=== PATIENT | male | born 1960 | race Caucasian/White ===

== ENCOUNTER 2020-12-22 05:29 | Inpatient (IN) ==
--- NOTE | 2020-12-06 10:11 | Anesthesiology Consultation ---
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 Patient follows strict COVID precaution guidelines. Patient not vaccinated. No known COVID-19 positive contacts or current COVID-19 related symptoms. Surgeon arranging preop COVID testing. Awaiting results. At anesthesiologist discretion AM DOS if increased PPE or updated COVID testing needed given work travel hx. - S/P colonoscopy (02/02/20): [facility] at [facility] Chart Review Chart Review: Acceptable Risk for Surgery and Patient seen in Pre Admission Testing Teaching & Discussion Pre-Anesthesia Teaching/Discussion Notes: Instructed NPO after midnight before surgery,except medications with 15 cc of water. Medication instructions provided according to the PAT guidelines. History Surgery Operation Date: 12/22/20 10:50 Proposed Procedures p Robotic Assisted Laparoscopic Prostatectomy, Retropublic Prostatectomy, Possible Open, Possible Pelvic Lymph Node Disection, Possible Suprabic Tube Placement - Lennox Weldon, DO Height/Weight Height: 5 ft 6 in Weight: 95.6 kg Allergies Allergy/AdvReac Type Severity Reaction Status Date / Time No Known Allergies Allergy Verified 12/01/20 13:21 Medications Home Medications Medication Instructions Recorded Confirmed Last Taken No Known Home Medications 12/01/20 12/01/20 Unknown Past Medical History Medical History Cerumen impaction recurrent hx (typically annual removal) Chronic prostatitis Elevated PSA Neck pain Chronic Obesity Osteoarthritis Prostate cancer Somatic dysfunction Cervical, lumbar, pelvis, rib, sacral, thoracic regions Exercise / Class Metabolic Activity II 4-5 Yardwork/Stairs/Walk up hill (one FS (no CP, no SOB)) Past Family History Family History Other Breast cancer Prostate cancer Past Surgical History Surgical History H/O oral surgery 1980s H/O prostate biopsy Hx of colonoscopy Past Anesthesia History No Hx of Anesthesia Complications and No Family Hx of Anesthesia Complications History of PONV No Hx of PONV and No Hx of Motion Sickness Social History Smoking Status: Current every day smoker tobacco type: cigars Smoking cigarettes per day: 1/2 PPD (tobacco use x 5 years)- Attempting to quit per patient Do You Dip or Chew Tobacco: Yes (1 can/2 days- Advised none DOS- Attempting to quit per patient ) Hx Alcohol Use: Yes Alcohol type: beer alcohol intake frequency: 3 or more drinks per day (2-3 beers/day (evening)) Hx Substance Use: No substance use type: does not use Review of Systems Patient denies chest pain, shortness of breath, dyspnea on exertion, fever, chills, cough, wheezing, palpitations. Physical Exam Vital Signs VITALS BP 132/88 P 76 TEMP 98.4 SP02 96%RA RESP 18 PHYSICAL Full cervical extension range of motion. Full TMJ range of motion. TMD 4 finger breaths Mallampati Score 3 Dentition: upper front tooth repair Lungs: clear throughout to auscultation Cardiac: regular rate and rhythm, no murmurs noted Spine: normal Carotid arteries: negative bruit Extremities: no edema Trimmed sena Lab Results Anesthesia Preop Results Results Anesthesia Widget: WBC 13.87 K/uL (4.8-10.8) H 12/06/20 Hgb 16.1 g/dL (14.0-18.0) 12/06/20 Hct 46.6 % (42-52) 12/06/20 Plt 250 K/uL (130-400) 12/06/20 Na 140 mmol/L (136-145) 12/06/20 K 4.3 mmol/L (3.5-5.1) 12/06/20 Cl 110 mmol/L (98-107) H 12/06/20 CO2 27 mmol/L (21-32) 12/06/20 BUN 14 mg/dl (7-18) 12/06/20 Creat 0.79 mg/dl (0.6-1.4) 12/06/20 Glucose Level 107 mg/dl (70-99) H 12/06/20 Blood Type A Positive 12/06/20 Antibody Screen NEGATIVE 12/06/20 Lab Comments: Surgeon's office made aware of elevated WBC. Testing Laboratory Results 11/16/20 UA negative (no growth on culture) Electrocardiogram Date: 12/06/20 NSR at 64bpm. unconfirmed report. Chest X-Ray Date: 12/06/20 Findings: + NAD
[2020-12-22] MEDS ORDERED: ceFAZolin 2000MG 2,000 MG/15 ML SYR IV SCH (06:00)
[2020-12-22] MEDS ORDERED: HEPARIN SOD 5,000 UNIT/0.5 ML VIAL SC SCH (06:00)
[2020-12-22] MEDS ORDERED: LR 15ML/HR IV SCH (06:00)
[2020-12-22] MEDS ORDERED: ACETAMINOPHEN 1000 MG/100 ML IV IV ONE (06:36)
[2020-12-22] MEDS ORDERED: LIDOCAINE 2% 2 ML VIAL/AMP(20MG/ML) INFIL ONE (06:39)
[2020-12-22] MEDS ORDERED: ROCURONIUM BROMIDE 10 MG/ML 5 ML VIAL IV ONE ×6 (06:39→09:35)
[2020-12-22] MEDS ORDERED: fentaNYL citrate 100 MCG/2 ML VIAL ONE ×4 (06:39→10:43)
[2020-12-22] MEDS ORDERED: MIDAZOLAM HCL 1 MG/ML 2ML VIAL ONE (06:39)
[2020-12-22] MEDS ORDERED: PROPOFOL IV EMULSION 10 MG/ML 20 ML VIAL IV ONE (06:39)
[2020-12-22] MEDS ORDERED: LARYING-O-JET KIT (LTA) ONE (06:39)
[2020-12-22] MEDS ORDERED: ONDANSETRON INJ 2 MG/ML 2 ML VIAL ONE ×2 (06:39→10:41)
[2020-12-22] MEDS ORDERED: ATROPINE SULFATE 0.1 MG/ML 10ML SYR IV PRN (06:47)
[2020-12-22] MEDS ORDERED: ePHEDrine sulfate 50 MG/ML AMP IV PRN (06:47)
[2020-12-22] MEDS ORDERED: ONDANSETRON INJ 2 MG/ML 2 ML VIAL IV PRN ×2 (06:47→13:00)
--- NOTE | 2020-12-22 06:56 | History & Physical Report ---
Date of Service December 22, 2020 Assessment & Plan (1) Prostate cancer: Plan: Risks and benefits discussed at length for procedure. These include bleeding, infection, injury to surrounding tissues or organs, and risks associated with anesthesia. Patient states understanding and agrees to proceed. Will sign consent and proceed. See last office note for full discussion. Plan for Robot Asst. Laparoscopic prostatectomy with bilateral lymph node dissection. History of Present Illness Primary Care Provider: Umang Richards DO Patient here for procedure. No changes in medical issues. No major changes in urinary issues. Continued issues and concerns. No change in pain or discomfort. No severe fevers or chills. No chest pain or shortness of breath. Risks and benefits discussed at length for procedure. These include bleeding, infection, injury to surrounding tissues or organs, and risks associated with anesthesia. Patient and/or family states understanding and agrees to proceed. Consent and supporting information completed. Allergies Allergy/AdvReac Type Severity Reaction Status Date / Time No Known Allergies Allergy Verified 12/22/20 06:19 Home Medications Medication Instructions Recorded Confirmed Type No Known Home Medications 12/01/20 12/01/20 History Past Med/Surg History Medical History Cerumen impaction recurrent hx (typically annual removal) Chronic prostatitis Elevated PSA Neck pain Chronic Obesity Osteoarthritis Prostate cancer Somatic dysfunction Cervical, lumbar, pelvis, rib, sacral, thoracic regions Surgical History H/O oral surgery 1980s H/O prostate biopsy Hx of colonoscopy Family History Other Breast cancer Prostate cancer Social History Smoking Status: Current every day smoker Tobacco Type: Cigarettes and Cigars Cigarettes Per Day: 1/2 PPD (tobacco use x 5 years)- Attempting to quit per patient; Second Hand Exposure: No; Do You Dip or Chew Tobacco: Yes (1 can/2 days- Advised none DOS- Attempting to quit per patient ); Tobacco Cessation Education Requested by Patient: No Hx Alcohol Use: Yes Alcohol type: beer Hx Substance Use: No Preferred Language: Hungarian Communication Ability: Effective Hearing Ability: Hard of Hearing Teaching Artist Required: No Beliefs That Will Affect Care: None Current Living Situation: Spouse current occupational status: employed Other Information That Helps Us Care for You: No Feels Safe at Home: Yes Safety Concerns: Feels Safe At This Time caffeine: Yes Dental Care, Regularly: No Physical Activity Frequency: Does not Exercise Assistive Devices: Glasses Review of Systems All systems reviewed & are unremarkable except as noted in HPI & below Physical Exam Physical Exam: General: Alert/Arousable. No Acute illness. . HEENT: Inspection normal. Normal inspection of face. Normal inspection of neck. Psychologic: Normal affect/No change in mentation. Respiratory: No use of accessory muscles. No respiratory changes or exacerbation or changes with tachypnea or dyspnea. Cardiovascular: No tachycardia Skin: [place] and Dry. No new rashes or visible lesions. Abdomen: Normal inspection. No guarding. PG Care Time/CCT Total # of Minutes Spent Total Time Spent with Patient: Total time spent is greater than 50% in coordination of care (as documented) at patient's floor/unit and/or counseling patient: Coding Level of Care Code None Diagnoses Prostate cancer C61
[2020-12-22] MEDS ORDERED: BUPIVACAINE 0.5 % 5 MG/1 ML MPF 30ML VIAL ONE (07:25)
[2020-12-22] MEDS ORDERED: FLOSEAL HEMOSTATIC MATRIX 10ML TOP ONE (08:39)
[2020-12-22] MEDS ORDERED: ePHEDrine sulfate 50 MG/ML SYR ONE (09:02)
[2020-12-22] MEDS ORDERED: GLYCOPYRROLATE 0.2 MG/ML VIAL ONE (10:41)
[2020-12-22] MEDS ORDERED: NEOSTIGMINE METHYLSULFATE 1 MG/ML 10ML VIAL ONE (10:41)
--- NOTE | 2020-12-22 11:12 | Operative Report ---
PG Post Operative Report Pre & Post Diagnosis Operation Date: 12/22/20 07:30 Pre-Op Diagnosis: Prostate Cancer Post-Op Diagnosis: Prostate Cancer I identified the patient and participated in the time-out.: Yes Procedure Operation Date: 12/22/20 07:30 Actual Procedures p Laparoscopic Robotic Assisted Radical Retropublic Prostatectomy, Pelvic Lymph Node Disection(Not Applicable) - Lennox Weldon DO Surgeon Lennox Weldon, II, DO Land Commissioner Fady CRAIG Estimated Blood Loss 100 Findings Consistent with Post-Op Diagnosis Small prostate with moderate adherence at the right base/pedicle Specimens Prostate and Seminal Vesicle Left Pelvic Lymph Nodes Right Pelvic Lymph Nodes. Drains 18 Fr Mcmahon catheter. 10 Fr Flat drain Anesthesia Type General Complications none Disposition Disposition: Recovery Room Indications Patient with Prostate Cancer. Risk and benefits were discussed at length. Patient elected to undergo robotic assisted laparoscopic Radical Prostatectomy. Description of Procedure The patient was brought to the operative suite and placed under general endotracheal intubation anesthesia in the supine position. The patient was transferred to the dorsal lithotomy position. At this point, the patient prepped and draped in the usual sterile fashion and a timeout was completed. Pre operative antibiotics of Ancef 2 grams had been given. FERNANDA's and SCD's were placed on the patient's lower extremities. A catheter was placed using sterile technique. With the time out completed the patient was placed into Trendelenburg and the skin at the umbilicus was anesthetized. A small incision was made superior to the umbilicus. A Varess Needle was placed and confirmed to be in the abdominal cavity. Water drop test passed. The Abdominal cavity was insufflated to 15 mmHG. The camera port was then placed. A laparoscopic camera was placed into the port and the abdominal cavity inspected. No concerning features were noted. At this point, the skin was marked for port placement and 8mm working ports were placed. The skin was anesthetized down to fascia and an approx 1cm incision was made to place the 3 x 8mm ports. A 12mm and 5 mm orthodontic assistant ports were also placed in similar fashion under direct visualization. The patient was transferred into steep Trendelenburg position and the legs lowered. The robot was positioned and docked. The camera was placed and all trocars were positioned under direct visualization. Fady CRAIG was integral in port placement, camera utilization, and docking procedure. She remained in sterile attire and then proceeded to assist the remainder of the case. At this point, I transitioned to the robotic console. At this point, the sigmoid colon was mobilized superiorly and the pelvis assessed. Adhesions were freed to allow mobilization. The peritoneum in the midline was opened between rectum and bladder and the vas deferens and seminal vesicles exposed. These were dissected with blunt technique. The vas was clipped and cut and mobilized. Cautery was used to assist dissection avoiding the tissue posteriorly near the rectum. The tissues lateral to the seminal vesicles were clipped with a hemolock and all bleeding controlled. This was taken as inferior as possible from this position. The medial umbilical ligaments were then identified and the peritoneum directly lateral on the right followed by the left was opened. The tissues were bluntly dissected to free the bladder's lateral attachments. This was taken down to the pubic bone and exposed the endopelvic fascia bilaterally. The medial ligaments were cut and the bladder dropped. The tissues was dissected anterior to the prostate. The endopelvic fascia on each side was then opened and the lateral edges of the prostate dissected. The Dorsal venous complex of the prostate was dissected and assessed. A 2-0 suture was used to ligate the vessels. A suspension stitch was used and clipped. Electrocautery was used to cut the anterior attachments, the puboprostatic ligaments, and venous tissues. The mcmahon was manipulated to better visual the bladder neck and dissection was taken using electrocautery. The bladder neck was opened and dissected from the prostate. The UO were identifed and dissection taken in a direction to avoid each side. The vas stump and seminal vesicles were exposed and used to assist in traction to dissect. The prostatic pedicles were better exposed. The posterior prostate was dissected. An attempt was made to limit cautery and utilize cold dissection of the lateral posterior prostate to attempt preservation of the neurovascular bundle bilaterally. Hemolock clips were utilized to clip the prostatic pedicle bilaterally. The dissection was taken to the apex of the prostate. The right base at the pedicle was moderately adhered and more difficult to dissect. Care was taken to attempt to maintain the neurovascular bundle. The anterior prostate was released and the urethra exposed. Cold cutting was used to open the anterior portion and expose the catheter. This was removed and the urethra incised. The prostate was further freed and grasped and removed from the field. The entire dissection bed was inspected.Hemostatic agent was placed in the region. No areas of injury or bleeding was noted. Care was taken to examine the perirectal tissues. A probe was placed and no injuries or other issues were observed. The bladder neck and urethra were then approximated with a running barbed suture starting at the 5 o'clock position and moving to the 12 o'clock on each side. This was tied at the anterior portion. A leak test was completed without any evidence of issues. The right and left pelvic lymph tissue was identified in relation to the iliac vessels. Distal dissection was taken to the Node of [place]. Inferiorly the obtorator vessels and nerve were identified. Lymphatic tissue within the surroun d fat tissue was dissected. This packet of tissues were sent for pathologic analysis and lymph node assessment. This was done for each separate side. Hemostatic agent was placed on the exposed vessels. The entire dissection space was inspected one final time. No bleeding or injuries or areas of concern were noted. No tumor or other concerning features were noted. At this point, the robot was undocked and moved away from the patient. The patient was taken out of Trendelenberg. The port sites were all assessed laparoscopically. The endoscopic bag was moved into the midline port. The 12mm port site was used to place a 10 Fr Flat drain. The other ports were assessed and no issues observed. The umbilical incision was opened further exposing fascia which was then opened in order to removed the prostate in the bag. The prostate was removed. During the removal through the port opening, the seminal vesicles became detached. A running 1-0 Vicryl suture was used to close fascia. The skin at each site was closed with ten. The area was cleaned and bandages placed on each incision. The patient was cleaned and bandaged, aroused from anesthesia, and transferred to the pacu in stable condition having tolerated the procedure well with no complications. I was present and participated in all aspects of the procedure. Fady CRAIG was critical in the portions as mentioned above. Will plan to observe postoperatively and monitor. Mcmahon to be remain in place until followup. I attest to the content of the Intraoperative Record and any orders documented therein. Any exceptions are noted below.
[2020-12-22 11:52] LABS: Hematocrit (blood only) 43.4 % (42-52); Mean Corpuscular Hemoglobin 32.8 pg (25-34); Mean Platelet Volume 9.3 fL (7.4-10.4); Platelet Count 250 K/uL (130-400); RDW Coefficient of Variation 12.6 % (11.5-14.5); RDW Standard Deviation 43.2 fL (36.4-46.3); Red Blood Count 4.57 M/uL (4.7-6.1); White Blood Count 24.62 K/uL (4.8-10.8)
[2020-12-22 11:56] LABS: Mean Corpuscular Hgb Conc 34.6 g/dL (32-36)
[2020-12-22] MEDS: fentaNYL citrate 100 MCG/2 ML VIAL IV PRN ×2 (12:08→12:13)
[2020-12-22 12:10] LABS: BUN Creatinine Ratio 16.5 (10-20); Calcium 8.1 mg/dl (8.5-10.1); Creatinine Clr Calc Pharmacy 88.9 ml/min; Est GFR (African American) 98.1 ml/min; Est GFR (Non-African American) 84.6 ml/min; Potassium 4.2 mmol/L (3.5-5.1)
[2020-12-22 12:16] LABS: Basophils # (auto) 0.03 K/uL (0-0.2); Basophils % (auto) 0.1 %; Eosinophils # (auto) 0.05 K/uL (0-0.5); Eosinophils % (auto) 0.2 %; Immature Granulocytes # (auto) 0.11 K/uL (0.00-0.02); Immature Granulocytes % (auto) 0.4 %; Lymphocytes # (auto) 2.04 K/uL (1.2-3.4); Lymphocytes % (auto) 8.3 %; Monocytes # (auto) 0.44 K/uL (0.11-0.59); Monocytes % (auto) 1.8 %; Neutrophils # (auto) 21.95 K/uL (1.4-6.5); Neutrophils % (auto) 89.2 %; RBC Morphology Unremarkable
--- NOTE | 2020-12-22 12:34 | Anesthesiology Progress Note ---
Date of Service December 22, 2020 Anesthesia Post Procedure Vital Signs Vital Signs: Temp Pulse Pulse Resp BP Pulse Ox 12/22/20 12:20 84 13 119/77 97 12/22/20 12:10 77 19 129/77 95 12/22/20 12:00 74 19 126/81 95 12/22/20 11:50 98.1 F 81 20 111/81 95 12/22/20 11:40 73 14 121/82 96 12/22/20 11:30 80 22 117/82 97 12/22/20 11:20 84 19 123/89 97 12/22/20 11:10 98.2 F 84 14 109/73 96 12/22/20 06:37 98.2 F 91 H 18 149/91 H 97 Pain Intensity Abdomen: Pain Intensity: 4 Transfer of Care Handoff Completed per policy Notes Mental Status: alert / awake / arousable and participated in evaluation Patient Amnestic to Procedure: Yes Nausea / Vomiting: adequately controlled Pain: adequately controlled Airway Patency, RR, SpO2: stable & adequate BP & HR: stable & adequate Hydration State: stable & adequate Anesthetic Complications: no major complications apparent and Pt Satisfied with anesthetic care
[2020-12-22] MEDS ORDERED: MoRPHine SULFATE 2 MG/ML CARP IV PRN (13:00)
[2020-12-22] MEDS ORDERED: oxyCODONE HCL IR 5 MG TAB (IMMEDIATE RELEASE) PO PRN (13:00)
[2020-12-22] MEDS ORDERED: MoRPHine SULFATE 4 MG/ML 1 ML CARP\\VIAL IV PRN (13:00)
[2020-12-22] MEDS ORDERED: ACETAMINOPHEN 325 MG TAB PO PRN (13:00)
[2020-12-22] MEDS: LACTATED RINGER'S 1,000 ML IV SCH ×2 (14:18→21:43)
[2020-12-22] MEDS: ceFAZolin 2000MG 2,000 MG/15 ML SYR IV SCH ×2 (15:55→23:19)
[2020-12-22] MEDS: CALCIUM CARBONATE 500 MG CHEWABLE TAB PO PRN (21:33)
[2020-12-22] MEDS: HEPARIN SOD 5,000 UNIT/0.5 ML VIAL SQ SCH (21:34)
[2020-12-23] MEDS: oxyCODONE HCL IR 5 MG TAB (IMMEDIATE RELEASE) PO PRN ×3 (00:55→21:23)
[2020-12-23] MEDS: LACTATED RINGER'S 1,000 ML IV SCH ×2 (06:42→17:05)
[2020-12-23 07:38] LABS: Basophils # (auto) 0.02 K/uL (0-0.2); Basophils % (auto) 0.2 %; Eosinophils # (auto) 0.16 K/uL (0-0.5); Eosinophils % (auto) 1.4 %; Hematocrit (blood only) 40.5 % (42-52); Hemoglobin 13.6 g/dL (14.0-18.0); Immature Granulocytes # (auto) 0.05 K/uL (0.00-0.02); Immature Granulocytes % (auto) 0.4 %; Lymphocytes # (auto) 1.67 K/uL (1.2-3.4); Lymphocytes % (auto) 14.7 %; Mean Corpuscular Hemoglobin 32.2 pg (25-34); Mean Corpuscular Hgb Conc 33.6 g/dL (32-36); Mean Platelet Volume 9.4 fL (7.4-10.4); Monocytes # (auto) 1.42 K/uL (0.11-0.59); Monocytes % (auto) 12.5 %; Neutrophils # (auto) 8.05 K/uL (1.4-6.5); Neutrophils % (auto) 70.8 %; Platelet Count 232 K/uL (130-400); RDW Standard Deviation 45.1 fL (36.4-46.3); Red Blood Count 4.22 M/uL (4.7-6.1); White Blood Count 11.37 K/uL (4.8-10.8)
--- NOTE | 2020-12-23 07:43 | Urology Progress Note ---
Date of Service December 23, 2020 Assessment & Plan (1) Prostate cancer: Plan: - Postop day #1 s/p Laparoscopic Robotic Assisted Radical Retropubic Prostatectomy, Pelvic Lymph Node Dissection by Dr. Weldon - Patient feeling well, progressing as expected. Minimal complaints of pain this morning. - Afebrile, VSS. - Labs reviewed, Wbc 11.37, Hgb 13.6, and creatinine 0.76 - Continue mcmahon catheter - Maintain ALEJANDRA drain - Advance diet - Encourage ambulation and use of incentive spirometer - Continue supportive care and pain management - Will continue to monitor, likely home later today or tomorrow pending patient progression Admission and Anticipated Discharge Date Admission Date: December 22, 2020 Subjective Pt examined at bedside this AM. Awake, resting in bed on arrival. Appears comfortable. He reports minimal abdominal pain this morning, mostly with movement. Managing pain with PO pain medication. Had c/o of heartburn last evening, ordered prn Tums, which relieved symptoms. No c/o of indigestion since. No fevers overnight. Tolerating clear liquid diet, no nausea or vomiting. Mcmahon catheter intact, draining clear yellow urine. ALEJANDRA drain intact, with serosanguineous drainage No flatus. Mcmahon output overnight- 575ml ALEJANDRA drain output overnight - 50ml Review of Systems Constitutional: as per Subjective / HPI Gastrointestinal: as per Subjective / HPI Genitourinary: + as per Subjective / HPI Physical Exam Constitutional: well developed and well nourished; no acute distress and not ill appearing Respiratory: normal respiratory effort and able to speak in complete sentences; no labored breathing and no audible wheezes Cardiovascular: Extremities: no calf tenderness Gastrointestinal (Abdomen): Percussion/Palpation: + abdomen tender (minimal generalized tenderness with palpation) and abdomen soft; no guarding and abdomen not rigid Surgical incisions appropriate, ten intact. Gauze dressing with tape to incision sites c/d/i. ALEJANDRA drain with serosanguineous drainage, dressing c/d/i Skin: No visible rashes or lesions Neurologic: awake Psychiatric: Orientation: alert, oriented x 3 and cooperative Genitourinary: Mcmahon catheter intact, draining clear yellow urine Results & Data ([facility]) Vital Signs (Past 12 Hours) Vital Signs Temp Pulse Resp BP BP Pulse Ox 12/23/20 07:17 37.1 C 69 16 114/74 95 12/23/20 03:30 36.7 C 68 16 111/70 96 12/22/20 22:08 37.1 C 72 17 113/69 96 PG Care Time/CCT Total # of Minutes Spent Total Time Spent with Patient: Total time spent is greater than 50% in coordination of care (as documented) at patient's floor/unit and/or counseling patient: Coding Level of Care Code None Diagnoses Prostate cancer C61
[2020-12-23 08:22] LABS: BUN Creatinine Ratio 12.1 (10-20); Calcium 8.5 mg/dl (8.5-10.1); Creatinine Clr Calc Pharmacy 114.7 ml/min; Est GFR (African American) 116.6 ml/min; Est GFR (Non-African American) 100.6 ml/min; Potassium 3.8 mmol/L (3.5-5.1)
[2020-12-23] MEDS: HEPARIN SOD 5,000 UNIT/0.5 ML VIAL SQ SCH ×2 (08:50→21:22)
[2020-12-24] MEDS: LACTATED RINGER'S 1,000 ML IV SCH (02:33)
[2020-12-24] MEDS: oxyCODONE HCL IR 5 MG TAB (IMMEDIATE RELEASE) PO PRN ×4 (04:54→21:06)
[2020-12-24 07:20] LABS: Basophils # (auto) 0.02 K/uL (0-0.2); Basophils % (auto) 0.2 %; Eosinophils # (auto) 0.15 K/uL (0-0.5); Eosinophils % (auto) 1.2 %; Hematocrit (blood only) 37.6 % (42-52); Hemoglobin 12.8 g/dL (14.0-18.0); Immature Granulocytes # (auto) 0.04 K/uL (0.00-0.02); Immature Granulocytes % (auto) 0.3 %; Lymphocytes # (auto) 1.02 K/uL (1.2-3.4); Lymphocytes % (auto) 8.4 %; Mean Corpuscular Hemoglobin 32.9 pg (25-34); Mean Corpuscular Volume 96.7 fL (80-100); Mean Platelet Volume 9.2 fL (7.4-10.4); Monocytes # (auto) 1.32 K/uL (0.11-0.59); Monocytes % (auto) 10.9 %; Platelet Count 194 K/uL (130-400); RDW Coefficient of Variation 12.9 % (11.5-14.5); RDW Standard Deviation 45.3 fL (36.4-46.3); Red Blood Count 3.89 M/uL (4.7-6.1); White Blood Count 12.15 K/uL (4.8-10.8)
[2020-12-24 07:37] LABS: Calcium 8.3 mg/dl (8.5-10.1); Creatinine Clr Calc Pharmacy 136.2 ml/min; Est GFR (African American) 125.1 ml/min; Est GFR (Non-African American) 107.9 ml/min; Potassium 3.8 mmol/L (3.5-5.1)
[2020-12-24] MEDS: HEPARIN SOD 5,000 UNIT/0.5 ML VIAL SQ SCH ×2 (10:02→21:05)
[2020-12-24] MEDS ORDERED: bisacodyL 10 MG SUPP PR STA (10:54)
--- NOTE | 2020-12-24 11:01 | Urology Progress Note ---
Date of Service December 24, 2020 Assessment & Plan (1) Prostate cancer: Plan: Dulcolax suppository today DC IVF Ativan PRN anxiety Drain in place - hopeful DC to home and removal tomorrow Awaiting bowel function Admission and Anticipated Discharge Date Admission Date: December 22, 2020 Subjective Patient s/p Robotic prostatectomy - POD#2. Doing well. Feels bloated. Not passing any gas. He is uncomfortable. Ambulating in halls. He is tolerating a diet without issues. Patient feels anxious . Review of Systems Constitutional: as per Subjective / HPI Gastrointestinal: as per Subjective / HPI Genitourinary: + as per Subjective / HPI Physical Exam Physical Exam: NAD, anxious regular rhythm nonlabored Incisions CDI, distended Urine clear ALEJANDRA serosang Ext without edema Results & Data ([facility]) Vital Signs (Past 12 Hours) Vital Signs Temp Pulse Resp BP Pulse Ox 12/24/20 07:57 37.0 C 79 16 121/77 95 Laboratory Results WBC mildly elevated today - will recheck for tomorrow AM PG Care Time/CCT Total # of Minutes Spent Total Time Spent with Patient: Total time spent is greater than 50% in coordination of care (as documented) at patient's floor/unit and/or counseling patient: Coding Level of Care Code None Diagnoses Prostate cancer C61 Time Spent (min) 30 Comment post op
[2020-12-24] MEDS: LORazepam 0.5 MG TAB PO PRN ×2 (11:19→21:05)
[2020-12-24] MEDS: CALCIUM CARBONATE 500 MG CHEWABLE TAB PO PRN ×2 (12:24→19:50)
[2020-12-24] MEDS: OXYBUTYNIN CHLORIDE 5 MG TAB PO PRN ×2 (14:12→21:07)
[2020-12-25] MEDS: oxyCODONE HCL IR 5 MG TAB (IMMEDIATE RELEASE) PO PRN (03:32)
[2020-12-25] MEDS: CALCIUM CARBONATE 500 MG CHEWABLE TAB PO PRN (08:22)
[2020-12-25] MEDS: OXYBUTYNIN CHLORIDE 5 MG TAB PO PRN (08:23)
[2020-12-25 08:40] LABS: Basophils # (auto) 0.02 K/uL (0-0.2); Basophils % (auto) 0.2 %; Eosinophils # (auto) 0.49 K/uL (0-0.5); Eosinophils % (auto) 4.5 %; Hematocrit (blood only) 37.6 % (42-52); Immature Granulocytes # (auto) 0.02 K/uL (0.00-0.02); Immature Granulocytes % (auto) 0.2 %; Lymphocytes # (auto) 1.13 K/uL (1.2-3.4); Lymphocytes % (auto) 10.4 %; Mean Corpuscular Hemoglobin 32.9 pg (25-34); Mean Corpuscular Hgb Conc 34.6 g/dL (32-36); Mean Corpuscular Volume 95.2 fL (80-100); Neutrophils # (auto) 8.01 K/uL (1.4-6.5); Neutrophils % (auto) 73.7 %; Platelet Count 187 K/uL (130-400); RDW Coefficient of Variation 12.5 % (11.5-14.5); RDW Standard Deviation 43.5 fL (36.4-46.3); Red Blood Count 3.95 M/uL (4.7-6.1); White Blood Count 10.87 K/uL (4.8-10.8)
[2020-12-25 09:13] LABS: BUN Creatinine Ratio 13.6 (10-20); Calcium 8.5 mg/dl (8.5-10.1); Creatinine Clr Calc Pharmacy 147.7 ml/min; Est GFR (African American) 129.3 ml/min; Est GFR (Non-African American) 111.6 ml/min; Potassium 3.4 mmol/L (3.5-5.1)
[2020-12-25] MEDS: HEPARIN SOD 5,000 UNIT/0.5 ML VIAL SQ SCH (09:22)
--- NOTE | 2020-12-25 10:19 | Discharge Summary ---
Date of Service December 25, 2020 Admission HPI Per Admitting Provider Patient here for procedure. No changes in medical issues. No major changes in urinary issues. Continued issues and concerns. No change in pain or discomfort. No severe fevers or chills. No chest pain or shortness of breath. Risks and benefits discussed at length for procedure. These include bleeding, infection, injury to surrounding tissues or organs, and risks associated with anesthesia. Patient and/or family states understanding and agrees to proceed. Consent and supporting information completed. Principal Diagnosis prostate cancer Discharge Exam NAD regular rate nonlabored less distention drain serosanginous dressing c/d/i ext without edema Discharge Data Allergies Allergy/AdvReac Type Severity Reaction Status Date / Time No Known Allergies Allergy Verified 12/22/20 06:19 Procedures Performed Operation Date: 12/22/20 07:30 Actual Procedures p Laparoscopic Robotic Assisted Radical Retropublic Prostatectomy, Pelvic Lymph Node Disection(Not Applicable) - Lennox Weldon DO Total Time Total Time Spent Total Time Spent (In Minutes): 30 Discharge Plan Discharge Items Patient Disposition: Home - Self-Care Reason For Visit: Prostate Cancer Discharge Diagnosis: Prostate Cancer Condition on Discharge: Good Health Concerns: Prostate cancer Activity: Per Instructions section Lifting: No more than 25 pounds Bathing Comment: OK to shower. No tub baths or soaks. Sexual Activity: Wait until after follow-up appointment Exercise/Sports: Wait until after follow-up appointment Driving/Machine Use: Do not drive while taking prescription pain medication. Non-emergency contact: Surgeon and Urologist Call non-emergency contact if: you have any medication questions, your pain is worsening, your pain is concerning for you, you have a fever, your temperature is above 101, your wound has increased redness, your wound has increased drainage and your wound pain has increased Follow-up/Referrals: Lennox Weldon DO [Physician] - 01/10/21 9:35 am Umang Richards DO [Primary Care Provider] - [facility],Nurse [FAKE FOR SCHEDULES] - 01/03/21 11:00 am (Staple removal ) Diet: Regular Addtl Attending Provider Instructions: Please take all medications as prescribed and keep all follow-ups as scheduled. Please call our office at [phone] with any questions, concerns or need to reschedule appointments for any reason. We are happy to assist you We have sent an antibiotic to your pharmacy of choice. Please begin antibiotic as prescribed the day BEFORE your scheduled voiding trial at [facility]. Please continue antibiotic every 12 hours through the day AFTER your voiding trial. Activity: We recommend having someone with you for the first few days after surgery to help care for you. For the first 2 weeks after surgery, we would like you to get up and walk around your house. However, we recommend limit physical activity that would increase your heart rate. This will allow your body to rest and heal. Take naps if you feel tired. Don't lift anything heavier than 10 pounds, mow the law or ride a bicycle until your follow-up appointment. Please avoid long car rides. Home Care: Unless directed otherwise, drink 6 to 8 glasses of water a day (enough to keep your urine light colored). This will also help keep a healthy flow of urine. We recommend using a stool softener for the first two weeks to avoid constipation. Hernández Catheter or Suprapubic Catheter care: Keep the catheter well secured with either a leg back or leg strap with large bag. Empty your bag when it's about half full. You may notice some blood in the bag. This is normal after surgery and while the catheter is in place. Use mild soap (such as Dove or Dial) and water to wash the catheter and the head of your penis daily, or more frequently if needed. Return to your normal diet, we encourage good protein intake to promote healing. You may shower as normal. Please avoid tub baths or soaking until catheter removed and incisions well healed. Wearing sweat pants while you have the catheter is recommended, they will be more comfortable. Follow-up Your follow up appointments for having your catheter removed, and follow up with your physician should already be scheduled. If you have any questions regarding this, please contact our office. Your final pathology report will be discussed at your physician follow-up appointment. Call [facility] at [phone] right away if you have any of the following: Chest pain or trouble breathing (call [phone] or go to the hospital) Fever of 101F or higher, uncontrolled vomiting Heavy bleeding, clots, or bright red blood from the catheter Catheter that falls out or stops draining Foul-smelling discharge from your catheter Redness, swelling, warmth, or increased pain at your incision site Drainage, pus, or bleeding from your incision Pending Studies at Discharge: Yes Stand-Alone Forms: My [facility], Smoking Cessation Medications and DC Order Prescriptions: New ciprofloxacin HCl 500 mg tablet 500 mg PO BID 3 Days Qty: 6 RF: 0 docusate sodium [Colace] 100 mg capsule 100 mg PO BID Qty: 60 RF: 0 oxycodone-acetaminophen [Percocet] 5-325 mg tablet 1 tab PO Q8H PRN (Reason: pain) Qty: 10 RF: 0 oxybutynin chloride 5 mg tablet 5 mg PO TID PRN (Reason: bladder spasms) Qty: 20 RF: 0 Discharge Orders: Discharge Order (Routine); Ordered 12/25/20 Ordered By: Lea Hou Admission Data Admit Date/Time: 12/22/20 11:14 Attending Provider: Lennox Weldon Admit Provider: Lennox Weldon Primary Care Provider: Umang Richards Coding Level of Care Code D/C DAY MANAGEMENT <30 MINS
== END 2020-12-25 12:33 | disposition home or self-care (01) | DRG 708 ==
LOC: ASU 05:29 → 3N 11:14
DX: C61 Malignant neoplasm of prostate; F17.210 Nicotine dependence, cigarettes, uncomplicated